=== PATIENT | male | born 1965 | race Caucasian/White ===

== ENCOUNTER 2017-05-10 11:31 | Inpatient (IN) | payer MEDICAID ==
[~2017-05-10] VITALS: Ht 170.2 cm; Wt 74.6 kg
[2017-05-10] MEDS ORDERED: LORazepam 2 MG/ML VIAL ONE (11:37)
[2017-05-10] MEDS ORDERED: FOLIC ACID 5 MG/ML 10 ML VIAL IVP ONE (11:45)
[2017-05-10] MEDS ORDERED: THIAMINE HCL 100 MG/ML 2ML VIAL IVP ONE (11:45)
[2017-05-10 12:00] VITALS: BP_SYST 115; BP_SYST 158; BP_DIAS 83; BP_DIAS 93
[2017-05-10] MEDS ORDERED: DIAZEPAM 5 MG/ML 2 ML SYRINGE IVP ONE (12:00)
[2017-05-10] MEDS ORDERED: SODIUM CHLORIDE 0.9% 1,000 ML IV ONE (12:00)
[2017-05-10 12:20] LABS: BASOPHILS % (AUTO) 0.3 % (0.0-2.0); EOSINOPHILS % (AUTO) 0.1 % (1.0-6.0); HEMATOCRIT 38.6 % (41-53); HEMOGLOBIN 13.3 g/dL (13.5-17.5); LYMPHOCYTES # (AUTO) 0.3 K/uL (1.0-4.8); LYMPHOCYTES % (AUTO) 8.6 % (22.0-44.0); MEAN CORPUSCULAR HEMOGLOBIN 30.5 pg (26.0-34.0); MEAN CORPUSCULAR HGB CONC 34.5 G/dL (31.0-37.0); MEAN CORPUSCULAR VOLUME 88 fL (80-100); MONOCYTES # (AUTO) 0.4 K/uL (0.1-1.0); MONOCYTES % (AUTO) 11.8 % (2.0-9.0); NEUTROPHILS # (AUTO) 2.9 K/uL (1.8-7.7); NEUTROPHILS % (AUTO) 79.2 % (40.0-70.0); RED BLOOD CELL COUNT(AUTO) 4.37 MIL/uL (4.50-5.90); RED CELL DISTRIBUTION WIDTH 19.7 % (11.5-14.5)
[2017-05-10 12:21] LABS: ANION GAP 20 mmol/L (8-16); CALCIUM, TOTAL 8.6 mg/dL (8.8-10.5); CARBON DIOXIDE 21 mmol/L (22-29); CHLORIDE 94 mmol/L (98-107); CREATININE 1.26 mg/dL (0.60-1.30); GLOMERULAR FILTR. RATE CALC 60 mL/min (>60); GLUCOSE,RANDOM 222 mg/dL (70-110); POTASSIUM 3.1 mmol/L (3.5-5.1); SODIUM SERUM 135 mmol/L (136-145); UREA NITROGEN, BLOOD 11 mg/dL (7-18)
[2017-05-10] MEDS: LORazepam 2 MG/ML VIAL IVP PRN ×4 (12:24→20:35)
[2017-05-10 12:27] LABS: ALANINE AMINOTRANSFERASE 61 U/L (12-78); ALBUMIN 3.8 g/dL (3.4-5.0); ALKALINE PHOSPHATASE 99 U/L (46-116); ASPARTATE AMINOTRANSFERASE 124 U/L (15-37); BILIRUBIN,TOTAL 1.1 mg/dL (0.1-1.0); LIPASE 615 U/L (73-393); TOTAL PROTEIN, SERUM 8.7 g/dL (6.4-8.2)
[2017-05-10 12:29] LABS: ACETAMINOPHEN < 2 mcg/mL (10-30)
[2017-05-10] MEDS ORDERED: MAGNESIUM SULFATE 1 GM in DEXTROSE 5%-WATER 50 ML IV ONE (12:30)
[2017-05-10 12:54] LABS: SALICYLATE 1.1 mg/dL (2.8-20.0)
[2017-05-10 13:13] LABS: PLATELET COUNT (AUTO) 60 K/uL (150-450)
[2017-05-10] MEDS ORDERED: 0.9% SODIUM CHLORIDE 10 ML SYRINGE IVP PRN (13:15)
[2017-05-10] MEDS ORDERED: LORazepam 2 MG/ML VIAL IVP PRN (13:15)
[2017-05-10] MEDS ORDERED: ACETAMINOPHEN 325 MG TABLET PO PRN (13:15)
[2017-05-10] MEDS ORDERED: ONDANSETRON HCL 4 MG/2 ML VIAL IVP PRN (13:15)
[2017-05-10 16:00] VITALS: BP 113/83
[2017-05-10 18:41] VITALS: BP 140/104
[2017-05-10 18:53] LABS: GLUCOSE,POINT OF CARE 120 MG/DL (70-110)
[2017-05-10 20:06] VITALS: BP 163/93
[2017-05-10] MEDS ORDERED: [UNRECOGNIZED DRUG - REMARK] IV ONE ×5 (20:15)
[2017-05-10] MEDS: ATENOLOL 25 MG TABLET PO SCH (21:53)
[2017-05-10] MEDS: HALOPERIDOL LACTATE 5 MG/ML VIAL IM PRN (21:53)
[2017-05-10 23:22] VITALS: BP 144/106
[2017-05-11] MEDS ORDERED: ACETAMINOPHEN 325 MG TABLET PO PRN (00:45)
[2017-05-11] MEDS ORDERED: 0.9% SODIUM CHLORIDE 10 ML SYRINGE IVP PRN (00:45)
[2017-05-11] MEDS: DOCUSATE SODIUM 100 MG CAPSULE PO SCH ×3 (00:45→20:48)
[2017-05-11] MEDS ORDERED: FOLIC ACID 5 MG/ML 10 ML VIAL SQ ONE (00:45)
[2017-05-11] MEDS ORDERED: OxyCODONE HCL/ACETAMINOPHEN 5-325 MG TABLET PO PRN ×2 (00:45)
[2017-05-11] MEDS ORDERED: MAGNESIUM HYDROXIDE SUSPENSION 30 ML UDCUP PO PRN (00:45)
[2017-05-11] MEDS: LORazepam 2 MG/ML VIAL IVP PRN ×5 (02:08→22:40)
[2017-05-11 03:02] VITALS: BP 147/100
[2017-05-11] MEDS: HALOPERIDOL LACTATE 5 MG/ML VIAL IM PRN ×2 (05:39→19:23)
[2017-05-11 08:01] VITALS: BP 144/95
[2017-05-11 08:28] LABS: BASOPHILS # (AUTO) 0.01 K/uL (0.00-0.20); BASOPHILS % (AUTO) 0.3 % (0.0-2.0); EOSINOPHILS # (AUTO) 0.01 K/uL (0.00-0.70); EOSINOPHILS % (AUTO) 0.15 % (1.0-6.0); HEMATOCRIT 40.2 % (41-53); HEMOGLOBIN 13.3 g/dL (13.5-17.5); LYMPHOCYTES # (AUTO) 0.5 K/uL (1.0-4.8); LYMPHOCYTES % (AUTO) 12.2 % (22.0-44.0); MEAN CORPUSCULAR HGB CONC 33.2 G/dL (31.0-37.0); MEAN CORPUSCULAR VOLUME 90 fL (80-100); MONOCYTES % (AUTO) 23.6 % (2.0-9.0); NEUTROPHILS # (AUTO) 2.6 K/uL (1.8-7.7); NEUTROPHILS % (AUTO) 63.7 % (40.0-70.0); PLATELET COUNT (AUTO) 80 K/uL (150-450); RED BLOOD CELL COUNT(AUTO) 4.45 MIL/uL (4.50-5.90); RED CELL DISTRIBUTION WIDTH 19.8 % (11.5-14.5)
[2017-05-11 08:50] LABS: ALANINE AMINOTRANSFERASE 46 U/L (12-78); ALBUMIN 3.5 g/dL (3.4-5.0); ALKALINE PHOSPHATASE 78 U/L (46-116); ANION GAP 11 mmol/L (8-16); ASPARTATE AMINOTRANSFERASE 95 U/L (15-37); BILIRUBIN,TOTAL 0.9 mg/dL (0.1-1.0); CALCIUM, TOTAL 8.4 mg/dL (8.8-10.5); CARBON DIOXIDE 28 mmol/L (22-29); CHLORIDE 95 mmol/L (98-107); CREATININE 0.58 mg/dL (0.60-1.30); GLOMERULAR FILTR. RATE CALC > 60 mL/min (>60); GLUCOSE,RANDOM 99 mg/dL (70-110); SODIUM SERUM 134 mmol/L (136-145); TOTAL PROTEIN, SERUM 8.2 g/dL (6.4-8.2); UREA NITROGEN, BLOOD 7 mg/dL (7-18)
[2017-05-11] MEDS: MULTIVITAMINS, THERAPEUTIC TABLET PO SCH (09:50)
[2017-05-11] MEDS: ATENOLOL 25 MG TABLET PO SCH (09:50)
[2017-05-11] MEDS: PANTOPRAZOLE SODIUM 40 MG/VIAL IVP SCH (09:51)
[2017-05-11] MEDS: THIAMINE HCL 100 MG/ML 2ML VIAL IM SCH (09:52)
[2017-05-11 12:03] VITALS: BP 120/69
[2017-05-11 15:31] VITALS: BP 132/78
[2017-05-11 16:41] VITALS: BP 140/87
[2017-05-11 20:08] VITALS: BP 128/75
[2017-05-12] VITALS (8 sets, daily range): BP systolic 122–138; BP diastolic 52–114
[2017-05-12] MEDS: LORazepam 2 MG/ML VIAL IVP PRN (03:17)
[2017-05-12] MEDS: HALOPERIDOL LACTATE 5 MG/ML VIAL IM PRN (03:53)
[2017-05-12 05:51] LABS: ANION GAP 14 mmol/L (8-16); CALCIUM, TOTAL 8.9 mg/dL (8.8-10.5); CARBON DIOXIDE 24 mmol/L (22-29); CHLORIDE 98 mmol/L (98-107); CREATININE 0.96 mg/dL (0.60-1.30); GLOMERULAR FILTR. RATE CALC > 60 mL/min (>60); GLUCOSE,RANDOM 119 mg/dL (70-110); POTASSIUM 3.6 mmol/L (3.5-5.1); SODIUM SERUM 136 mmol/L (136-145); UREA NITROGEN, BLOOD 12 mg/dL (7-18)
[2017-05-12] MEDS: LORazepam 2 MG/ML VIAL IVP SCH ×3 (05:57→18:05)
[2017-05-12] MEDS ORDERED: LORazepam 2 MG/ML VIAL IVP SCH (06:00)
[2017-05-12 06:18] LABS: BASOPHILS % (AUTO) 0.4 % (0.0-2.0); EOSINOPHILS % (AUTO) 0.1 % (1.0-6.0); HEMATOCRIT 42.1 % (41-53); HEMOGLOBIN 14.2 g/dL (13.5-17.5); LYMPHOCYTES % (AUTO) 18.6 % (22.0-44.0); MEAN CORPUSCULAR HEMOGLOBIN 30.2 pg (26.0-34.0); MEAN CORPUSCULAR HGB CONC 33.6 G/dL (31.0-37.0); MEAN CORPUSCULAR VOLUME 90 fL (80-100); MONOCYTES # (AUTO) 1.2 K/uL (0.1-1.0); MONOCYTES % (AUTO) 21.9 % (2.0-9.0); NEUTROPHILS # (AUTO) 3.2 K/uL (1.8-7.7); PLATELET COUNT (AUTO) 107 K/uL (150-450); RED BLOOD CELL COUNT(AUTO) 4.69 MIL/uL (4.50-5.90); RED CELL DISTRIBUTION WIDTH 19.2 % (11.5-14.5)
[2017-05-12] MEDS: MULTIVITAMINS, THERAPEUTIC TABLET PO SCH (09:07)
[2017-05-12] MEDS: ATENOLOL 25 MG TABLET PO SCH (09:07)
[2017-05-12] MEDS: PANTOPRAZOLE SODIUM 40 MG/VIAL IVP SCH (09:07)
[2017-05-12] MEDS: DOCUSATE SODIUM 100 MG CAPSULE PO SCH ×2 (09:07→20:25)
[2017-05-12] MEDS: THIAMINE HCL 100 MG/ML 2ML VIAL IM SCH (10:41)
[2017-05-13] MEDS: LORazepam 2 MG/ML VIAL IVP SCH (00:06)
[2017-05-13] MEDS: HALOPERIDOL LACTATE 5 MG/ML VIAL IM PRN (00:59)
[2017-05-13] MEDS: LORazepam 2 MG/ML VIAL IVP PRN ×5 (02:37→21:02)
[2017-05-13] MEDS: ChlordiazePOXIDE HCL 25 MG CAPSULE PO SCH ×5 (02:37→23:42)
[2017-05-13 04:00] VITALS: BP 138/88
[2017-05-13 09:00] VITALS: BP 134/87
[2017-05-13] MEDS: DOCUSATE SODIUM 100 MG CAPSULE PO SCH ×2 (09:00→20:53)
[2017-05-13] MEDS: PANTOPRAZOLE SODIUM 40 MG/VIAL IVP SCH ×2 (09:03→20:53)
[2017-05-13] MEDS: MULTIVITAMINS, THERAPEUTIC TABLET PO SCH (09:03)
[2017-05-13] MEDS: ATENOLOL 25 MG TABLET PO SCH (09:03)
[2017-05-13] MEDS: THIAMINE HCL 100 MG/ML 2ML VIAL IM SCH (09:03)
[2017-05-13 12:23] VITALS: BP 134/72
[2017-05-13 16:20] VITALS: BP 114/70
[2017-05-13 20:09] VITALS: BP 125/74
[2017-05-13] MEDS: MAGNESIUM SULFATE 2 GM, MVI, ADULT NO.1 WITH VIT K 10 ML, THIAMINE HCL 100 MG, FOLIC AC... IV SCH ×5 (20:54)
[2017-05-14 00:02] VITALS: BP 137/86
[2017-05-14] MEDS: LORazepam 2 MG/ML VIAL IVP PRN ×4 (02:02→15:30)
[2017-05-14] MEDS: HALOPERIDOL LACTATE 5 MG/ML VIAL IM PRN (02:54)
[2017-05-14 06:09] VITALS: BP 159/100
[2017-05-14] MEDS: ChlordiazePOXIDE HCL 25 MG CAPSULE PO SCH ×4 (06:30→23:29)
[2017-05-14 07:03] LABS: ANION GAP 11 mmol/L (8-16); CALCIUM, TOTAL 8.5 mg/dL (8.8-10.5); CARBON DIOXIDE 22 mmol/L (22-29); CHLORIDE 102 mmol/L (98-107); CREATININE 0.59 mg/dL (0.60-1.30); GLOMERULAR FILTR. RATE CALC > 60 mL/min (>60); GLUCOSE,RANDOM 83 mg/dL (70-110); SODIUM SERUM 135 mmol/L (136-145); UREA NITROGEN, BLOOD 9 mg/dL (7-18)
[2017-05-14 07:20] LABS: BASOPHILS # (AUTO) 0.02 K/uL (0.00-0.20); BASOPHILS % (AUTO) 0.5 % (0.0-2.0); EOSINOPHILS # (AUTO) 0.03 K/uL (0.00-0.70); EOSINOPHILS % (AUTO) 0.89 % (1.0-6.0); HEMATOCRIT 38.7 % (41-53); HEMOGLOBIN 12.6 g/dL (13.5-17.5); LYMPHOCYTES # (AUTO) 0.8 K/uL (1.0-4.8); LYMPHOCYTES % (AUTO) 21.6 % (22.0-44.0); MEAN CORPUSCULAR HEMOGLOBIN 29.9 pg (26.0-34.0); MEAN CORPUSCULAR HGB CONC 32.4 G/dL (31.0-37.0); MEAN CORPUSCULAR VOLUME 92 fL (80-100); MONOCYTES # (AUTO) 0.9 K/uL (0.1-1.0); MONOCYTES % (AUTO) 23.7 % (2.0-9.0); NEUTROPHILS # (AUTO) 2.1 K/uL (1.8-7.7); NEUTROPHILS % (AUTO) 53.2 % (40.0-70.0); PLATELET COUNT (AUTO) 127 K/uL (150-450)
[2017-05-14 08:32] VITALS: BP 107/61
[2017-05-14] MEDS: MAGNESIUM SULFATE 2 GM, MVI, ADULT NO.1 WITH VIT K 10 ML, THIAMINE HCL 100 MG, FOLIC AC... IV SCH ×10 (08:42→23:29)
[2017-05-14] MEDS: DOCUSATE SODIUM 100 MG CAPSULE PO SCH ×2 (08:42→20:14)
[2017-05-14] MEDS: ATENOLOL 25 MG TABLET PO SCH (08:43)
[2017-05-14] MEDS: PANTOPRAZOLE SODIUM 40 MG/VIAL IVP SCH ×2 (08:47→20:14)
[2017-05-14] MEDS ORDERED: POTASSIUM CHLORIDE 20 MEQ ER TABLET PO PRN (14:45)
[2017-05-14 15:38] VITALS: BP 115/80
[2017-05-14 20:21] VITALS: BP 123/77
[2017-05-15 00:34] VITALS: BP 128/84
[2017-05-15] MEDS: HALOPERIDOL LACTATE 5 MG/ML VIAL IM PRN ×2 (01:41→09:18)
[2017-05-15] MEDS: LORazepam 2 MG/ML VIAL IVP PRN (01:54)
[2017-05-15 05:27] VITALS: BP 110/74
[2017-05-15] MEDS: ChlordiazePOXIDE HCL 25 MG CAPSULE PO SCH ×2 (05:44→12:28)
[2017-05-15 09:02] VITALS: BP 115/63
[2017-05-15] MEDS: PANTOPRAZOLE SODIUM 40 MG/VIAL IVP SCH (09:12)
[2017-05-15] MEDS: DOCUSATE SODIUM 100 MG CAPSULE PO SCH (09:18)
[2017-05-15] MEDS: ATENOLOL 25 MG TABLET PO SCH (09:18)
[2017-05-15 12:28] VITALS: BP 116/72
[2017-05-15] MEDS ORDERED: INFLUENZA VIRUS VACCINE QVS 2017-18 (3YR+)/PF 60 MCG/0.5 ML SYRINGE IM ONE (13:30)
[2017-05-15] MEDS: MAGNESIUM SULFATE 2 GM, MVI, ADULT NO.1 WITH VIT K 10 ML, THIAMINE HCL 100 MG, FOLIC AC... IV SCH ×5 (14:26)
[2017-05-15 15:21] VITALS: BP 120/65
[2017-05-15] MEDS ORDERED: CHLO5CAP3 PO (17:21)
[2017-05-15] MEDS ORDERED: CHLO25CA5 PO ×2 (17:21)
== END 2017-05-15 18:00 | disposition home or self-care (01) | DRG 282 ==
LOC: EMS 11:33 → AHU 16:26 → 6N 05-12 05:59
PROVIDERS: ADMIT Internal Medicine; ATTEND Internal Medicine
DX: K85.90 Acute pancreatitis without necrosis or infection, unspecified (principal); F10.231 Alcohol dependence with withdrawal delirium; R65.10 Systemic inflammatory response syndrome (SIRS) of non-infectious origin without acute organ dysfunction; E83.42 Hypomagnesemia; F10.232 Alcohol dependence with withdrawal with perceptual disturbance; I10 Essential (primary) hypertension; E87.1 Hypo-osmolality and hyponatremia; E87.6 Hypokalemia; D64.9 Anemia, unspecified
CPT/HCPCS: 82948; 82962; 83735; 84132; 87040; 93005; 96361; 96365; 96366; 96375; 99291; C9113; G0480; G0481; J1630; J2060; J3411; J3475; J3490; J7030; J7060

== ENCOUNTER 2020-10-21 01:09 | Emergency (ER) | payer MEDICAID ==
[~2020-10-21] VITALS: Ht 177.8 cm; Wt 68.2 kg
[~2020-10-21 01:09] MED LIST: AMLO-257 PO; FOLI-130 PO; LIB25 PO; MULT-1077 PO; THIA100T80 PO
[2020-10-21] MEDS ORDERED: THIAMINE 100 MG TABLET PO ONE (04:15)
[2020-10-21 04:22] LABS: BASOPHILS % (AUTO) 0.6 % (0.0-2.0); EOSINOPHILS % (AUTO) 2.7 % (1.0-6.0); HEMATOCRIT 45.5 % (41-53); HEMOGLOBIN 15.1 g/dL (13.5-17.5); LYMPHOCYTES # (AUTO) 1.4 K/uL (1.0-4.8); LYMPHOCYTES % (AUTO) 25.9 % (22.0-44.0); MEAN CORPUSCULAR HGB CONC 33.2 G/dL (31.0-37.0); MEAN CORPUSCULAR VOLUME 90 fL (80-100); MONOCYTES # (AUTO) 0.6 K/uL (0.1-1.0); MONOCYTES % (AUTO) 10.8 % (2.0-9.0); NEUTROPHILS # (AUTO) 3.3 K/uL (1.8-7.7); PLATELET COUNT (AUTO) 173 K/uL (150-450); RED BLOOD CELL COUNT(AUTO) 5.04 MIL/uL (4.50-5.90); RED CELL DISTRIBUTION WIDTH 15.4 % (11.5-14.5)
[2020-10-21 04:44] LABS: ALANINE AMINOTRANSFERASE 7 U/L (12-78); ALBUMIN 3.7 g/dL (3.4-5.0); ALKALINE PHOSPHATASE 68 U/L (46-116); ANION GAP 13 mmol/L (8-16); ASPARTATE AMINOTRANSFERASE 30 U/L (15-37); BILIRUBIN,TOTAL 0.4 mg/dL (0.1-1.0); CALCIUM, TOTAL 8.8 mg/dL (8.8-10.5); CARBON DIOXIDE 26 mmol/L (22-29); CHLORIDE 105 mmol/L (98-107); CREATININE 0.61 mg/dL (0.60-1.30); GLOMERULAR FILTR. RATE CALC > 60 mL/min (>60); GLUCOSE,RANDOM 106 mg/dL (70-110); POTASSIUM 3.3 mmol/L (3.5-5.1); SODIUM SERUM 144 mmol/L (136-145); TOTAL PROTEIN, SERUM 6.9 g/dL (6.4-8.2); UREA NITROGEN, BLOOD 10 mg/dL (7-18)
[2020-10-21 05:35] VITALS: BP 122/72
== END 2020-10-21 06:18 | disposition home or self-care (01) ==
LOC: EMS 01:10
DX: R45.851 Suicidal ideations (principal); F32.9 Major depressive disorder, single episode, unspecified; F10.129 Alcohol abuse with intoxication, unspecified; I10 Essential (primary) hypertension; Y90.6 Blood alcohol level of 120-199 mg/100 ml
CPT/HCPCS: 36415; 80053; 85025; 99285; G0480

== ENCOUNTER 2020-12-02 18:57 | Emergency (ER) | payer MEDICAID ==
[~2020-12-02] VITALS: Ht 175.3 cm; Wt 77.3 kg
[2020-12-02 23:24] VITALS: BP 129/84
[2020-12-02 23:56] LABS: BASOPHILS % (AUTO) 0.6 % (0.0-2.0); HEMATOCRIT 43.6 % (41-53); HEMOGLOBIN 14.4 g/dL (13.5-17.5); LYMPHOCYTES # (AUTO) 1.8 K/uL (1.0-4.8); MEAN CORPUSCULAR HEMOGLOBIN 30.3 pg (26.0-34.0); MEAN CORPUSCULAR VOLUME 92 fL (80-100); MONOCYTES # (AUTO) 0.3 K/uL (0.1-1.0); MONOCYTES % (AUTO) 7.2 % (2.0-9.0); NEUTROPHILS % (AUTO) 47.2 % (40.0-70.0); PLATELET COUNT (AUTO) 143 K/uL (150-450); RED BLOOD CELL COUNT(AUTO) 4.75 MIL/uL (4.50-5.90); RED CELL DISTRIBUTION WIDTH 14.6 % (11.5-14.5)
[2020-12-03 00:05] LABS: ANION GAP 11 mmol/L (8-16); CALCIUM, TOTAL 7.8 mg/dL (8.8-10.5); CARBON DIOXIDE 28 mmol/L (22-29); CHLORIDE 108 mmol/L (98-107); GLOMERULAR FILTR. RATE CALC > 60 mL/min (>60); GLUCOSE,RANDOM 85 mg/dL (70-110); POTASSIUM 3.3 mmol/L (3.5-5.1); SODIUM SERUM 147 mmol/L (136-145); UREA NITROGEN, BLOOD 10 mg/dL (7-18)
[2020-12-03 00:11] LABS: ALANINE AMINOTRANSFERASE 31 U/L (12-78); ALBUMIN 3.5 g/dL (3.4-5.0); ALKALINE PHOSPHATASE 66 U/L (46-116); ASPARTATE AMINOTRANSFERASE 33 U/L (15-37); BILIRUBIN,TOTAL 0.3 mg/dL (0.1-1.0); TOTAL PROTEIN, SERUM 6.8 g/dL (6.4-8.2)
== END 2020-12-03 01:16 | disposition home or self-care (01) ==
LOC: EMS 19:01
DX: F10.239 Alcohol dependence with withdrawal, unspecified (principal); I10 Essential (primary) hypertension; Y90.7 Blood alcohol level of 200-239 mg/100 ml
CPT/HCPCS: 80053; 85025; 99283; G0480

== ENCOUNTER 2021-01-25 17:49 | Emergency (ER) | payer MEDICAID ==
[~2021-01-25] VITALS: Ht 177.8 cm; Wt 77.3 kg
[2021-01-25 17:54] VITALS: BP 133/80
== END 2021-01-25 19:22 | disposition left against medical advice (07) ==
LOC: EMS 17:52
DX: M79.671 Pain in right foot (principal); Z53.21 Procedure and treatment not carried out due to patient leaving prior to being seen by health care provider

== ENCOUNTER 2021-02-12 17:50 | Emergency (ER) | payer MEDICAID ==
[~2021-02-12] VITALS: Ht 175.3 cm; Wt 86.4 kg
[2021-02-12 18:02] VITALS: BP 144/87
== END 2021-02-12 18:44 | disposition left against medical advice (07) ==
LOC: EMS 17:53
DX: R52 Pain, unspecified (principal); Z53.21 Procedure and treatment not carried out due to patient leaving prior to being seen by health care provider